=== PATIENT | female | born 1990 | race Caucasian/White ===

== ENCOUNTER 2020-01-30 18:35 | Inpatient (IN) | payer BC ==
[~2020-01-30] VITALS: Ht 170.2 cm; Wt 85.9 kg
[2020-01-30] VITALS (7 sets, daily range): BP systolic 101–127; BP diastolic 57–82; PULSE 67–85; TEMP 97.6–98.4
--- NOTE | 2020-01-30 18:25 | NUR ---
182- PT PRESENTS TO LDR COMPLAINING OF CONTRACTIONS, AMBULATORY TO ROOM LR4, CHANGED INTO GOWN. 1831- EFM X2 APPLIED, NEGATIVE COVID SCREEING. PT DENIES LEAKING FLUID OR VAGINAL BLEEDING, STATES SHE IS FEELING BABY MOVE. 1839-SVE BY THIS NURSE -. PLAN OF CARE FOR LABOR CHECK DISCUSSED AND QUESTIONS ANSWERED. 1844- NURSING ADMISSION HISTORY AND ASSESSMENT COMPLETED. 1944- PT REPORTS CONTRACTIONS ARE ABOUT THE SAME. SVE BY THIS NURSE . PLAN OF CARE FOR CONTINUEING LABOR CHECK DISCUSSED AND QUESTIONS ANSWERED. PT UP TO AMBULATE IN HALLS. 2020- PT BACK TO BED AND EFM APPLIED. 2044- PT REPORTS CONTRACTIONS ARE ABOUT THE SAME. SVE BY THIS NURSE . PLAN OF CARE DISCUSSED FOR CALLING AND QUESTIONS ANSWERED. 2099- DR ATKINSON CALLED AND IS UNAVAILABLE TO CARE FOR PT, CALL ARCHIVAL STUDIES PROFESSOR . 2105- DR VELASCO CALLED AND UPDATED ON PT HISTORY, COMPLAINTS, SVE, STRIP INTERPRETATION, VITAL SIGNS, AND DESIRE FOR EPIDURAL. ORDER TO ADMIT AND OK FOR EPIDURAL.
[2020-01-30] MEDS ORDERED: PRENATAL VITAMI1 TA3 PO (19:07)
--- NOTE | 2020-01-30 21:28 | NUR ---
2127- PT UP TO BATHROOM 2144- IV START TO LEFT WRIST CHARTED. BLOOD DRAWN FOR LAB. LR INFUSING. 2199- CONSENTS SIGNED. 2203- PT UP TO BATHROOM BEFORE EPIDURAL PLACEMENT. 2207- PT BACK FROM BATHROOM, POSITIONED SITTING UP ON EDGE OF BED FOR EPIDURAL. 2211- GILES LICENSED EMBALMER SUPERVISOR AT BEDSIDE FOR EPIDURAL PLACEMENT. HE COMPLETES HISTORY AND ANSWERES PT QUESTIONS. 222- EPIDURAL SINGLE SHOT. 222- EPIDURAL PROCEDURE COMPLETE. PT TOLERATED WELL. PT REPOSITIONED ON LEFT TILT AND MONITORS ADJUSTED. 224- PT REPORTS THAT SHE IS COMFORTABLE AT THIS TIME. 2255- DR VELASCO IN HOSPITAL FOR A DIFFERENT DELIVERY. 2315- SVE BY THIS NURSE [address] VELASCO UPDATED AND IS AT DESK REVIEWING PT'S CHART AND EFM TRACING. 232- DR VELASCO TO BEDSIDE. DISCUSSES AROM WITH PT AND AND ANSWERS QUESTIONS. PT OK TO PROCEED. 2328- AROM OF CLEAR FLUIDS BY DR VELASCO. SVE BY DR VELASCO -/-2.
[2020-01-30 21:57] LABS: BASO % 0.2 % (0.0-2.0); EOS % 0.2 % (0-4.0); GRAN # 8.6 (1.4-6.5); GRAN % 79.8 % (42.2-75.2); HEMOGLOBIN 12.2 g/dl (12.5-16.0); LYMPH # 1.3 (1.2-3.4); LYMPH % 12.1 % (20.0-51.0); MEAN CELL VOLUME 91 fl (80.0-100.0); MEAN CORPUSCULAR HEMOGLOBIN 31 pg (27.0-31.0); MEAN CORPUSCULAR HGB CONC 34 g/dl (33.0-37.0); MEAN PLATELET VOLUME 10.1 fl (7.4-10.4); MONO # 0.8 (0.1-0.6); MONO % 7.1 % (1.7-9.3); PLATELET COUNT 162 K/mm3 (130-400); RED BLOOD COUNT 3.94 M/mm3 (4.10-5.30)
[2020-01-30 22:05] LABS: HEMATOCRIT 35.7 % (37.0-47.0)
[2020-01-31] VITALS (28 sets, daily range): BP systolic 91–124; BP diastolic 51–83; PULSE 68–93; TEMP 97.6–98.7
--- NOTE | 2020-01-31 01:00 | NUR ---
0100- PT REPORTS SHE HAS BEEN ABLE TO REST. SVE BY THIS NURSE . LEY CATHETER PLACED TO DEPENDENT DRAINAGE. PT TOLERATED WELL. 0215- PT REPORTS SHE IS COMFORTABLE WITH HER EPIDURAL, AND THAT SHE HAS BEEN ABLE TO REST. SVE BY THIS NURSE /+1. PLAN OF CARE DISCUSSED FOR LABORING DOWN AND WHEN WE WOULD START PUSHING. WILL RECHECK PT LATER OR WHEN SHE STARTS TO FEEL PRESSURE.
--- NOTE | 2020-01-31 03:15 | NUR ---
0315- PT DENIES FEELING ANY PRESSURE AT THIS TIME. SVE BY THIS NURSE COMPLETE AND +2. DISCUSSED PUSHING WITH PT AND QUESTIONS ANSWERED. 0323- PT POSITIONED IN STIRRUPS FOR PUSHING, LEY CATHETER REMOVED WITHOUT DIFFICULTY. 0326- PT BEGINS COACHED PUSHING WITH CONTRACTIONS. 0335- PT MAKING GOOD PROGRESS WITH PUSHING, DR VELASCO CALLED FOR DELIVERY. 0350- DR VELASCO AT BEDSIDE FOR DELIVERY. 0404- SPONTANEOUS VAGINAL DELIVERY OF VIABLE MALE, VIGOROUS, TO MOTHER'S ABDOMEN AND CARE OF NURSERY STAFF. 0407- SPONTANEOUS DELIVERY OF PLACENTA, EXAMINED BY DR VELASCO, PITOCIN INFUSING, REPAIR IN PROGRESS. STRAIGHT CATH PER DR VELASCO. 0415- REPAIR COMPLETE. PERICARE PROVIDED. ICEPACK TO PERINEUM. FEET DOWN FROM FOOTPLATES AND RECOVERY STARTED.
--- NOTE | 2020-01-31 07:20 | NUR ---
0720- Pt ambulates to bathroom independently with standby assist x1. Voids well, over 1000ml. One plum sized clot noted during voiding. Bleeding appears WNL. Pericare explained and provided. Underwear and peripad on. Pt ambulates to PP room well with spouse and this RN. Oriented to room. Call light within reach.
[2020-02-01 07:03] VITALS: BP 122/68; PULSE 78; TEMP 98.2
[2020-02-01 16:00] VITALS: BP 114/64; PULSE 72; TEMP 97.2
[2020-02-01 19:07] VITALS: BP 112/57; PULSE 75; TEMP 97.9
[2020-02-02 06:41] VITALS: BP 110/58; PULSE 76; TEMP 98.1
[2020-02-02] MEDS ORDERED: MOTRIN 600600 MG/TAB PO (08:18)
== END 2020-02-02 11:43 | disposition home or self-care (01) | DRG 807 ==
LOC: LDRO 18:35 → LDR 21:06 → OB 01-31 07:30
PROVIDERS: Obstetrics & Gynecology; ADMIT Obstetrics & Gynecology
PROC: 10E0XZZ Delivery of Products of Conception, External Approach (ICD-10-PCS; principal; 2020-01-31)
PROC: 0KQM0ZZ Repair Perineum Muscle, Open Approach (ICD-10-PCS; 2020-01-31)
PROC: 10907ZC Drainage of Amniotic Fluid, Therapeutic from Products of Conception, Via Natural or Artificial Opening (ICD-10-PCS; 2020-01-31)
DX: O99.02 Anemia complicating childbirth (principal); Z37.0 Single live birth; O70.1 Second degree perineal laceration during delivery; Z3A.39 39 weeks gestation of pregnancy
CPT/HCPCS: J2590; J2791; J2795; J7120